=== PATIENT | female | born 1990 | race Caucasian/White ===

== ENCOUNTER 2018-03-07 08:25 | Emergency (ER) | payer OTHER ==
[2018-03-07] MEDS ORDERED: Ondansetron ODT TAB* 4 MG SL ONE (08:43)
[2018-03-07 08:57] LABS: ABS Basophils 0 10^3/ul (0-0.2); ABS Eosinophils 0 10^3/ul (0-0.6); ABS Monocytes 0.3 10^3/ul (0-0.8); ABS Neutrophils 8.6 10^3/ul (1.5-7.7); ABS Nucleated RBC 0 10^3/ul; Eosinophil % 0 % (0-6); Hematocrit 39 % (35-47); Hemoglobin 13.6 g/dl (12.0-16.0); Lymphocyte % 10.2 % (25-47); Mean Corpuscular HGB Conc 35 g/dl (31-36); Mean Corpuscular Hemoglobin 30 pg (27-31); Mean Corpuscular Volume 87 fL (80-97); Mean Platelet Volume 8.9 um3 (7.4-10.4); Nucleated Red Blood Cells % 0; Platelet Count 190 10^3/ul (150-450); Red Blood Count 4.52 10^6/ul (4.00-5.40); Red Cell Distribution Width 13 % (10.5-15); White Blood Count 9.9 10^3/ul (3.5-10.8)
[2018-03-07 09:13] LABS: EGFR Non-African American 128.9 (>60)
[2018-03-07 09:18] LABS: Urine Appearance Turbid; Urine Blood Negative (Negative); Urine Color Yellow; Urine Ketones Trace (Negative); Urine Protein 2+(100 mg/dL) (Negative); Urine Red Blood Cell 3+(>10/hpf) (Absent); Urine Specific Gravity 1.028 (1.010-1.030); Urine Urobilinogen Negative (Negative); Urine White Blood Cell Absent (Absent)
[2018-03-07 09:49] VITALS: BP 97/63
--- NOTE | 2018-03-07 09:51 | ED ---
Abdominal Pain/Female - HPI Summary HPI Summary: Patient is an otherwise healthy 27-year-old female presenting to the ED with 12 hour history of mid lower abdominal pain without radiation. Inspector Plug Seam used for communication. She denies any back pain. Denies any urinary symptoms, nausea, vomiting, constipation. She does endorse 2 episodes of some loose stools this morning. She states she has not had a period since the of her child 8 months ago. She however has been spotting over the past few days, but not a normal menses. She does have some cramping normally with her menses. She denies any fevers, sweats, chills. She states she took a Sinhala antibiotic at 1 AM and 6 AM this morning for fear of having an appendicitis. She is otherwise healthy, denies any allergies, denies taking any medications on a daily basis, she states she's never had a history of diarrhea, abdominal pain or abdominal surgeries. - History of Current Complaint Chief Complaint: EDAbdPain Stated Complaint: ABD PAIN Time Seen by Provider: 03/07/18 08:34 Hx Obtained From: Patient ?: No Onset/Duration: Sudden Onset Timing: Constant Severity Initially: Moderate Severity Currently: Moderate Pain Intensity: 8 Pain Scale Used: 0-10 Numeric Location: Suprapubic Radiates: No Character: Dull Aggravating Factor(s): Nothing Alleviating Factor(s): Nothing Associated Signs and Symptoms: Positive: Negative - Risk Factors Ectopic Risk Factor: Negative Ovarian Torsion Risk Factor: Reproductive Age Allergies/Adverse Reactions: Allergies Allergy/AdvReac Type Severity Reaction Status Date / Time No Known Allergies Allergy Verified 03/07/18 08:31 PMH/Surg Hx/FS Hx/Imm Hx Previously Healthy: Yes - Immunization History Hx Pertussis Vaccination: No Immunizations Up to Date: Yes Infectious Disease History: No Infectious Disease History: Denies: Traveled Outside the [place] in Last 30 Days - last was in [place] 2 months ago - Social History Occupation: Employed Full-time Lives: Alone Alcohol Use: None Substance Use Type: Reports: None Smoking Status (MU): Never Smoked Tobacco Physical Exam Vital Signs On Initial Exam: Initial Vitals Temp Pulse Resp BP Pulse Ox 98.0 F 76 18 96/67 97 03/07/18 08:25 03/07/18 08:25 03/07/18 08:25 03/07/18 08:25 03/07/18 08:25 Diagnostics - Vital Signs Vital Signs Temp Pulse Resp BP Pulse Ox 03/07/18 08:25 98.0 F 76 18 96/67 97 - Laboratory Lab Results: Lab Results 03/07/18 03/07/18 03/07/18 Range/Units 08:50 08:50 09:02 WBC 9.9 (3.5-10.8) 10^3/ul RBC 4.52 (4.00-5.40) 10^6/ul Hgb 13.6 (12.0-16.0) g/dl Hct 39 (35-47) % MCV 87 (80-97) fL MCH 30 (27-31) pg MCHC 35 (31-36) g/dl RDW 13 (10.5-15) % Plt Count 190 (150-450) 10^3/ul MPV 8.9 (7.4-10.4) um3 Neut % (Auto) 86.7 H (38-83) % Lymph % (Auto) 10.2 L (25-47) % [place] % (Auto) 2.8 (0-7) % Eos % (Auto) 0 (0-6) % Baso % (Auto) 0.3 (0-2) % Absolute Neuts (auto) 8.6 H (1.5-7.7) 10^3/ul Absolute Lymphs (auto) 1.0 (1.0-4.8) 10^3/ul Absolute Monos (auto) 0.3 (0-0.8) 10^3/ul Absolute Eos (auto) 0 (0-0.6) 10^3/ul Absolute Basos (auto) 0 (0-0.2) 10^3/ul Absolute Nucleated RBC 0 10^3/ul Nucleated RBC % 0 Sodium 137 (135-145) mmol/L Potassium 3.8 (3.5-5.0) mmol/L Chloride 102 (101-111) mmol/L Carbon Dioxide 30 (22-32) mmol/L Anion Gap 5 (2-11) mmol/L BUN 17 (6-24) mg/dL Creatinine 0.56 (0.51-0.95) mg/dL Est GFR ( Amer) 156.0 (>60) Est GFR (Non-Af Amer) 128.9 (>60) BUN/Creatinine Ratio 30.4 H (8-20) Glucose 134 H (70-100) mg/dL Calcium 9.5 (8.6-10.3) mg/dL Total Bilirubin 0.40 (0.2-1.0) mg/dL AST 13 (13-39) U/L ALT 13 (7-52) U/L Alkaline Phosphatase 102 (34-104) U/L C-Reactive Protein < 1.00 (<8.01) mg/L Total Protein 7.1 (6.4-8.9) g/dL Albumin 4.4 (3.2-5.2) g/dL Globulin 2.7 (2-4) g/dL Albumin/Globulin Ratio 1.6 (1-3) Urine Color Yellow Urine Appearance Turbid Urine pH 8.0 (5-9) Ur Specific [place] 1.028 (1.010-1.030) Urine Protein 2+(100 mg/dl) A (Negative) Urine Ketones Trace A (Negative) Urine Blood Negative (Negative) Urine Nitrate Negative (Negative) Urine Bilirubin Negative (Negative) Urine Urobilinogen Negative (Negative) Ur Leukocyte Esterase Negative (Negative) Urine WBC (Auto) Absent (Absent) Urine RBC (Auto) 3+(>10/hpf) A (Absent) Urine Bacteria Absent (Absent) Urine Glucose Negative (Negative) Result Diagrams: 03/07/18 08:50 03/07/18 08:50 Lab Statement: Any lab studies that have been ordered have been reviewed, and results considered in the medical decision making process. Abdominal Pain Fem Course/Dx - Course Course Of Treatment: On physical examination, there is mild tenderness to the suprapubic region without radiation. No tenderness to the RLQ or LLQ. Negative Conner sign, no tenderness over McBurney's point. Bowel sounds diffusely throughout. She states she has had some mild nausea and she is given a Zofran ODT for this. Labs obtained are all WNL except for elevated BUN. She appears well and nontoxic. Vital signs are stable and she is afebrile. UA obtained which shows RBCs. No signs of infection. Discussed at length with the patient and the patient's roommate she will need to return if any symptoms worsen. I have discussed treatment options including a CAT scan and I have discussed I would like to defer at this time as there is no acute findings to warrant a CAT scan or an abdominal x-ray at this time. This is also spoke with through an body masker and they understand return precautions. Discharge - Discharge Plan Condition: Stable Disposition: HOME Prescriptions: Ibuprofen TAB* [Motrin TAB* 600 MG] 600 mg PO Q6H PRN #30 tab PRN Reason: Pain Referrals: No Primary Care Phys,NOPCP [Primary Care Provider] - Additional Instructions: You need to return to the ED if you have worsening symptoms Ibuprofen four times daily x 3 days - Billing Disposition and Condition Condition: STABLE Disposition: Home
== END 2018-03-07 09:48 | disposition home or self-care (01) ==
LOC: ED 08:25
DX: R10.30 Lower abdominal pain, unspecified (principal)
CPT/HCPCS: 36415; 80053; 81003; 81015; 85025; 86140; 99282; A9270-GY